=== PATIENT | female | born 1990 | race Caucasian/White ===

== ENCOUNTER 2019-02-24 21:46 | Emergency (ER) | payer SELFPAY | END 2019-02-24 23:24 | disposition left against medical advice (07) | LOC: ER 21:46 | DX: Z53.21 Procedure and treatment not carried out due to patient leaving prior to being seen by health care provider (principal) ==

== ENCOUNTER 2019-04-25 20:35 | Observation (INO) | payer OTHER ==
[~2019-04-25] VITALS: Ht 154.9 cm; Wt 55.0 kg
[2019-04-26 00:47] LABS: BASOPHILS % 0.9 % (0.0-2.0); HEMATOCRIT. 33.8 % (36.0-48.0); HEMOGLOBIN. 11.6 g/dL (12.0-16.0); LYMPHOCYTES % 31.3 % (20.0-50.0); MEAN CORPUSCULAR HEMOGLOBIN 28.5 pg (28.0-32.0); MEAN PLATELET VOLUME 8.2 fl (7.4-10.4); NEUTROPHILS % 57.8 % (40.0-76.0); PLATELET 251 x1000/uL (130-400); RED BLOOD CELL COUNT 4.08 mill/uL (4.2-5.4); RED CELL DISTRIBUTION WIDTH 14.4 % (11.6-14.6)
[2019-04-26 00:51] LABS: CHLORIDE 107 mEq/L (98-107)
[2019-04-26 01:15] LABS: B-HCG QUANTITATIVE 12242 mIU/mL (<3)
[2019-04-26] MEDS ORDERED: ACETAMINOPHEN 325MG TABLET PO ONE (01:45)
[2019-04-26 02:56] LABS: CLARITY URINE CLEAR (CLEAR); COLOR URINE YELLOW (YELLOW); KETONES URINE NEGATIVE (NEGATIVE); LEUKOCYTE ESTERASE URINE 2+ (NEGATIVE); NITRITE URINE NEGATIVE (NEGATIVE); OCCULT BLOOD URINE TRACE (NEGATIVE); PH URINE >=9.0 (4.5-8.0); PROTEIN URINE NEGATIVE (NEGATIVE); SPECIFIC GRAVITY URINE 1.007 (1.005-1.030); UROBILINOGEN URINE 0.2 E.U./dL (0.2-1.0)
[2019-04-26 03:36] VITALS: BP 90/56
[2019-04-26] MEDS ORDERED: CEPH-569 PO ×2 (05:09)
== END 2019-04-26 05:20 | disposition home or self-care (01) ==
LOC: ER 20:35 → 8 EST LDRP 20:36 → ER 04-26 03:40
PROVIDERS: ADMIT Obstetrics & Gynecology; ATTEND Obstetrics & Gynecology
DX: O26.852 Spotting complicating pregnancy, second trimester (principal); O23.42 Unspecified infection of urinary tract in pregnancy, second trimester; O26.892 Other specified pregnancy related conditions, second trimester; R10.9 Unspecified abdominal pain; Z3A.16 16 weeks gestation of pregnancy
CPT/HCPCS: 36415; 76805; 80048; 81003; 84702; 85025; 86850; 86900; 86901; 99281; G0378